=== PATIENT | female | born 1970 | race Caucasian/White ===

== ENCOUNTER → 2016-08-16 | Outpatient (CLI) | payer BC ==
--- NOTE | 2016-08-19 10:59 | Diagnostic Imaging Report ---
PROCEDURE: US Thyroid. TECHNIQUE: Multiple real-time grayscale images were obtained of the thyroid in various projections. Indication: Followup thyroid nodule. Comparison: 01/20/2013 and 07/20/2012. Discussion: The thyroid gland appears normal in echotexture and size with normal color Doppler blood flow. No discrete thyroid nodule identified. Previous hypoechoic nodule inferior to left thyroid gland is no longer visualized, possibly previously a lymph node. No abnormal lymph nodes identified on today's exam. The right thyroid measures 5.0 x 0.9 x 1.2 cm. The left thyroid measures 5.0 x 1.1 x 1.3 cm. Impression: 1. Normal sonographic appearance of the thyroid gland. No discrete nodule identified on today's exam. Dictated by: Dictated on workstation # [id number]
== END ==
LOC: RAD 09:49
DX: E04.1 Nontoxic single thyroid nodule (principal)

== ENCOUNTER → 2022-05-01 | Outpatient (CLI) | payer BC ==
--- NOTE | 2022-05-01 12:24 | Diagnostic Imaging Report ---
PROCEDURE: US Thyroid. TECHNIQUE: Multiple real-time grayscale images were obtained of the thyroid in various projections. INDICATION: Abnormal thyroid function tests COMPARISON: 08/19/2016 FINDINGS: Both thyroid lobes demonstrate smooth and homogenous echotexture. There are no focal lesions seen. Color flow Doppler demonstrates normal and symmetric vascularity, bilaterally. The right lobe measures 4.6 x 1.5 x 1 cm, the left lobe measures 4.2 x 1 x 1.1 cm. The isthmus measures 2 mm. IMPRESSION: Unremarkable thyroid sonogram. Dictated by: Dictated on workstation # [id number]
== END ==
LOC: RAD 11:54
PROVIDERS: ATTEND Family Medicine
DX: R94.6 Abnormal results of thyroid function studies (principal)
CPT/HCPCS: 76536